=== PATIENT | female | born 1960 | race Caucasian/White ===

== ENCOUNTER → 2016-05-30 | Outpatient (CLI) | payer BC | END | disposition home or self-care (01) | LOC: C.PAPS 14:10 | PROVIDERS: ATTEND Obstetrics & Gynecology | DX: N95.8 Other specified menopausal and perimenopausal disorders (principal); Z01.419 Encounter for gynecological examination (general) (routine) without abnormal findings ==

== ENCOUNTER → 2017-04-13 | Day surgery (SDC) | payer BC ==
[2017-03-27 08:08] VITALS: Ht 170.2 cm; Wt 60.0 kg
[~2017-04-13] VITALS: Ht 170.2 cm; Wt 60.0 kg
[~2017-04-13] MED LIST: ATROPINE SULFATE 0.1 MG/ML 5ML SYR IV PRN; B-COTAB18 PO; CALC600T9 PO; CEFAZOLIN 1000MG IV PUSH 5 ML IV SCH; CHRO1CAP3 PO; DEXAMETHASONE SOD INJ 4 MG/ML VIAL ONE; EpHEDrine SULFATE INJ 50 MG/ML AMP IV PRN; EpHEDrine SULFATE INJ 50 MG/ML AMP ONE; FENTANYL CITRATE INJ 50 MCG/1 ML 2 ML VIAL ONE; HYDR-5688 PO; LACTATED RINGER'S 1000ML 1,000 ML IV SCH; LIDOCAINE HCL 1% 20 ML VIAL ONE; LIDOCAINE HCL 2% 2 ML VIAL (20MG/ML) ONE; LIDOCAINE/EPINEPHRINE 1% INJ 50 ML VIAL ONE; MIDAZOLAM HCL 1 MG/ML 2ML VIAL ONE; MULT-1018 PO; MULT-506 PO; OMEG10007 PO; ONDANSETRON INJ 2 MG/ML 2 ML VIAL IV PRN; ONDANSETRON INJ 2 MG/ML 2 ML VIAL ONE; OXYCODONE/ACETAMINOPHEN 5-325 TAB PO PRN; PROPOFOL IV EMULSION 10 MG/ML 20 ML VIAL IV ONE; SODIUM CHLORIDE 0.9% 1000ML 1,000 ML IV SCH; SODIUM CHLORIDE 0.9% INJ 10 ML VIAL ONE; TURM500T PO
--- NOTE | 2017-04-13 08:20 | History & Physical Bridge Note ---
H&P Re-Evaluation Bridge Note: I have examined the patient, reviewed the History & Physical and in the interval since the performance of the History & Physical I have noted the following changes of clinical significance: No changes noted
[2017-04-13] MEDS: LIDOCAINE HCL 1% 20 ML VIAL ONE (10:00)
[2017-04-13] MEDS: BUPIVACAINE/EPINEPHRINE 0.5% MPF 1:200,000 30 ML VIAL ONE ×2 (10:00→10:05)
--- NOTE | 2017-04-13 10:18 | [facility] Operative Report ---
Operative Report Operative Date Apr 13, 2017. Pre-Operative Diagnosis Bilateral Middle finger Trigger Digits, Bilateral CMC joint arthritis, Lateral epicondylitis, right elbow Post-Operative Diagnosis same as preop Procedure(s) Performed Bilateral Middle Finger Trigger Finger Releases, Bilateral Thumb Carpometa Carpal Joint Steroid Injections; Right Tennis Elbow Debridement Surgeon Dr. Mccarthy Cementing Bulk Material Operator Surgeon(s) TIFFANIE Ross, peter reed fellow Estimated Blood Loss 2 cc Findings Tendinosis right elbow. Passive triggering of the right long finger. Specimens A: Tennis Elbow, right Anesthesia laryngeal mask Complication(s) None Disposition Recovery Room / PACU Indications The patient is a 50-year-old female with bilateral long finger trigger digits bilateral basilar thumb joint arthritis and right tennis elbow. These refractory to nonsurgical methods of management she wishes to have the after mentioned procedures Description of Procedure Informed consent was obtained. The patient was identified as Verena Mccarty. She identified the operative site as both thumbs both long fingers and the right elbow. A preoperative surgical timeout was performed. Appropriate dose of IV antibiotics was given. She was taken to the operating room positioned supine on the OR table and the laryngeal mask anesthetic was administered. The examination under anesthesia revealed clicking but no locking of the left long finger. There was passive locking and clicking to the right long finger. Both upper extremities were prepped and draped in the usual sterile fashion DVT prophylaxis was not indicated after the procedures were completed 50-50 mixture of 1% lidocaine with epinephrine and half percent Marcaine were injected into each of the surgical incisions. Prior to prepping and draping 10 mg Depo- Medrol and 1/4 mL of 1% plain lidocaine were injected into each basilar thumb joint using separate preparations and sterile technique. On the right thumb the initial injection may have been more towards the scaphoid trapezial joint and I administered an additional identical injection was just felt was more confidently in the trapeziometacarpal joint. The left arm was exsanguinated with the Esmarch and the Esmarch was unwrapped distal to proximal and utilized as a tourniquet. A oblique incision was used in the skin crease overlying the long finger. Blunt dissection was performed in the midline. And the A1 trisha was identified and released in line with the tendon. The tendon was normal. There is no notable Cate synovitis and no mass. It was then irrigated and closed with interrupted horizontal mattress stitches. 4-0 nylon suture was utilized. Attention was turned to the right arm where the limb was exsanguinated with the Esmarch tourniquet inflated 225 mmHg. An oblique incision was made using a minor skin crease overlying the long finger. Blunt dissection was performed down through the skin and subcutaneous tissues until the thickened A1 trisha was identified. Trisha on the left hand was not notably thickened on the right it was. The A1 trisha was completely released. There was no residual catching or locking. The tendon looked normal. The wound was irrigated and closed with 4-0 nylon interrupted horizontal mattress stitches. Attention was turned to the right elbow were a 4 cm longitudinal incision was made over the anterior aspect of the lateral epicondyle. The skin was incised and blunt dissection was performed down to subcutaneous tissues. The posterior margin of the extensor carpi radialis longus muscle was identified. An incision was made in the fascia 2-3 mm posterior to this and then elevated up off the underlying ECRB. Extensor carpi radialis brevis tendon. Dull fish fleshy warren type tendon tendinosis tissue was noted. This was excised en bloc in a triangular fashion with the apex proximal and the base of the distal at the radiocapitellar joint. There was no plica noted the radiocapitellar articulation looked normal. The scratch test was utilized to remove any remaining tendinosis anterior and posterior. Care was taken to stay on the anterior portion of the epicondyles to protect the collateral ligament. The remaining tissue looked normal. The wound was irrigated. The tendon was then closed with running 0 Vicryl. The skin was closed with 4-0 Vicryl and 4-0 Monocryl subcuticular stitch. A soft sterile dressing was applied from the fingers to the elbow utilizing an Jayjay wrap. Xeroform 4 x 4's. A soft sterile dressing was applied to the left hand as well. Xeroform 4 x 4's and Coban. The tourniquet on the right arm was let down after approximate 35 minutes of inflation. Tourniquet time on the left was 6 minutes. The resected tissue on the right elbow was sent for specimen. There were no complications. Counts were correct in the case. Blood loss was minimal. At the conclusion operations both patient's informed of my findings. Detailed postoperative instructions were given. She'll be rehabilitated according to the trigger finger and tennis elbow debridement protocol. He was then awakened from anesthesia without difficulty and taken occurred in stable condition I attest to the content of the Intraoperative Record and any orders documented therein. Any exceptions are noted below.
--- NOTE | 2017-04-13 10:22 | Discharge Instructions-SurgCtr ---
Discharge Instructions Date of Service Apr 13, 2017. Visit Reason for Visit: Bilateral Middle Finger Trigger Digits, Thumb Carp Discharge Discharge Diagnosis / Problem: B/L middle finger trigger digits, BL thumb CMC jt OA; R elbow Lat. epicondy Discharge Goals Goal(s): Decrease discomfort, Improve function, Increase independence Activity Recommendations Activity Limitations: per Instructions/Follow-up section Weightbearing Status: Left non-weightbearing (left hand), Right non- weightbearing (right hand and right elbow) Anesthesia . Post Anesthesia Instructions: If you have had General Anesthesia or IV Sedation: * Do not drive today. * Resume driving when surgeon permits. * Do not make important decisions or sign legal documents today. * Call surgeon for: 1. Temperature elevations greater than 101 degrees F. 2. Uncontrollable pain. 3. Excessive bleeding. 4. Persistent nausea and vomiting. 5. Medication intolerance (nausea, vomiting or rash). * For nausea and vomiting use only clear liquids such as: tea, soda, bouillon until nausea subsides, then gradually increase diet as tolerated. * If you have any concerns or questions, call your surgeon's office. If physician is unavailable and it is an emergency, call 911 or go to the nearest emergency room. . Instructions / Follow-Up Instructions / Follow-Up The following are instructions to follow after minor hand surgery. ACTIVITY RECOMMENDATIONS: * Minimize activity until your first visit after surgery. * No excessive walking, jogging, sports or laboring. * Return to activity is individualized. Most patients are able to return to everyday activities within 2 weeks. * Return to sports or intensive labor usually occurs at 1-2 months. * DRIVING: Driving may be resumed when you feel you have adequate pain control and use of the hand. * BATHING: You may shower or sponge-bathe immediately after surgery. The dressing will need to be covered with a plastic bag or plastic wrap until the dressing is changed on the fourth or fifth day after surgery. Once the dressing has been changed on the fourth or fifth day after surgery, you may shower and get the incision wet. * Wash with regular soap and water. * Do not bathe (submerge the incision), soak, swim or use a hot tub until the incision is completely healed over with normal skin and the doctor has given the OK to proceed. * There is no need to apply any ointments, powders or salves to your incision. * Do not apply alcohol or hydrogen peroxide directly to the incision. Diluted peroxide (50:50 mixture with sterile saline) may be used to clean dried blood from around the incision area. WORK/SCHOOL: * You may return to sedentary work or school when you are feeling comfortable. This is usually 3-7 days after surgery. * Expect increased discomfort with increased activity. Continue to elevate and ice the hand as much as possible. DIET: * Resume previous diet. MEDICATIONS: * You will have a prescription for pain medication and an anti-inflammatory medication after surgery. Use the pain pills for severe pain and the anti-inflammatory for less severe pain. * Once the pain pills have run out, try to use the anti-inflammatory. If this is not effective then contact the office for assistance. * The pain medication may cause nausea, constipation and sleepiness. You should see how they affect you before driving or similar activity. * The anti-inflammatory may cause stomach upset and bleeding. If this occurs, let your doctor know immediately . * Some patients may need blood clot prevention. This can be done with either a pill or a simple shot. Your doctor will advise you on when to begin these medications and how to take them. * Do not take aspirin or other anti-inflammatory products (i.e. Advil or Aleve ) if taking blood thinner medication. * Take a stool softener like Colace or a stimulant like Senokot to prevent constipation. SPECIAL CARE INSTRUCTIONS: ICE: * Do not apply ice directly to the skin. * Use a thin dressing or stockinet between the skin and ice bag. The dressing in place after surgery will suffice. * Apply ice for 20-30 minutes and repeat every 2-4 hours. This is especially important for the first 3-7 days after surgery. * Once the pain improves, use ice as needed. ELEVATION: * Keep your hand elevated at or above the level of your heart as much as possible. * Expect some increased discomfort and swelling if you allow your hand to hang down for any length of time. DRESSING: * Your dressing will be changed 4-5 days after surgery by the physical therapist or physician's child care center assistant director. Leave your dressing intact until this time. * You may then change your dressing daily with clean dry gauze or Band-aids and a soft wrap or stockinet. * Always wash your hands prior to touching the incision area. * Once the stitches are removed, you may leave the wound open to air or cover with a thin bandage. * There is no need to apply any ointments, powders or salves to your incision. * Expect some bloody drainage for the first few days after surgery. * Leave the tape strips in place (if present) for 5-7 days. * The initial dressing after surgery may become soaked with blood or fluid which is normal. You may reinforce your dressing with clean, dry gauze as needed. BRACE: * Bracing is generally not needed after routine hand surgery. THERAPY: * Physical therapy may be prescribed after your surgery. * For carpal tunnel and trigger digit surgery you may begin moving your fingers and wrist immediately after surgery as tolerated. * Be careful to not overuse. * Once the sutures are removed, further range of motion exercises can be performed. * Hand incisions may be very sensitive for a few months after surgery so avoid excessive pressure on the incision. If necessary, use a padded weightlifters' glove. * You may massage the incision with skin cream to make it less sensitive and reduce scarring. * Hand strength usually returns with normal use. * If needed, squeezing a soft sponge or Play-dough may help. * Your doctor will recommend physical therapy if necessary. PROBLEMS/QUESTIONS: * If you have any problems such as severe pain, numbness, tingling or high fevers or if you have any questions, please contact the office at [phone]. * It is not uncommon to have some numbness and tingling after the surgery especially if you have had a nerve block done. This should gradually improve over the first 1- 2 days. If this persists longer or worsens then contact the office. FOLLOW UP VISIT: * If not already scheduled, please call the office at to schedule follow-up appointments for approximately 10 days, 6 weeks and 3 months after surgery. * You have a physical therapy appointment on 04/17/2017 at 10:30 AM. * You have a follow-up appointment scheduled with Dr. Mccarthy on 04/26/2017 at 12:00 PM Diet Recommendations Home Diet: no limitations, resume previous diet Procedures Procedures Performed: Bilateral Middle Finger Trigger Finger Releases, Bilateral Thumb Carpometa Carpal Joint Steroid Injections; Right Tennis Elbow Debridement Pending Studies Studies pending at discharge: no Medical Emergencies . Who to Call and When: Medical Emergencies: If at any time you feel your situation is an emergency, please call 911 immediately. . Non-Emergent Contact Non-Emergency issues call your: Surgeon Call Non-Emergent contact if: temperature is above 101, your pain is not controlled, wound has increased drainage, wound has increased redness, wound has increased pain, you have any medication questions . . "Provider Documentation" section prepared by Maira Fernando. . [place] Drug Monitoring Program Search Results: patient reviewed within database, no issues identified
--- NOTE | 2017-04-13 10:27 | [facility] Operative Report ---
Operative Report Operative Date Apr 13, 2017. Pre-Operative Diagnosis Bilateral Middle finger Trigger Digits, Bilateral CMC joint arthritis, Lateral epicondylitis, right elbow Post-Operative Diagnosis same as preop Procedure(s) Performed Bilateral Middle Finger Trigger Finger Releases, Bilateral Thumb Carpometa Carpal Joint Steroid Injections; Right Tennis Elbow Debridement Surgeon Dr. Mccarthy Graphite Grinder Surgeon(s) TIFFANIE Ross, peter reed fellow Estimated Blood Loss 2 cc Findings Trigger digits bilateral middle fingers, right lateral epicondylitis Specimens A: Tennis Elbow, right Drains None Anesthesia laryngeal mask Complication(s) None Disposition Recovery Room / PACU (stable) Indications She is a 56 year old female who presented to our office with complaints of bilateral trigger digits, right lateral elbow pain and bilateral thumb pain. X- rays were taken, showed no bony abnormality and she was diagnosed with bilateral middle finger trigger digits, bilateral CMC joint osteoarthritis, and right elbow lateral epicondylitis. She is failed conservative treatment. She wished to proceed with surgery. Risks and complications discussed. Informed consent was obtained. Description of Procedure She was taken to the operating room and placed under general anesthesia. She was given 1 g of IV Ancef for surgical prophylaxis. Timeout was performed. She was prepped and draped in routine sterile fashion. I was present during the entire case, please see Dr. Mccarthy's operative report for further detail. She was awakened and transferred to the recovery room in stable condition. I attest to the content of the Intraoperative Record and any orders documented therein. Any exceptions are noted below.
[2017-04-13] MEDS: FENTANYL CITRATE INJ 50 MCG/1 ML 2 ML VIAL IV PRN ×4 (10:33→10:54)
--- NOTE | 2017-04-13 11:18 | Anesthesia Progress Nt - [facility] ---
Anesthesia Post Op Note Date & Time Apr 13, 2017 at 11:18 Vital Signs Pain Intensity: 0 Vital Signs Past 12 Hours Date Time Temp Pulse Resp B/P (MAP) Pulse Ox O2 Delivery O2 Flow Rate FiO2 04/13/17 11:07 96 10 04/13/17 11:07 97 10 96 04/13/17 11:06 132/63 04/13/17 11:02 100 13 96 04/13/17 11:02 99 13 04/13/17 11:02 36.9 96 Room Air 04/13/17 11:01 140/63 04/13/17 11:00 103 17 04/13/17 11:00 101 17 97 04/13/17 10:56 120/55 04/13/17 10:55 94 12 04/13/17 10:55 93 12 93 04/13/17 10:54 97 10 96 04/13/17 10:54 97 10 04/13/17 10:51 116/55 04/13/17 10:49 102 13 04/13/17 10:49 102 13 97 04/13/17 10:46 119/48 04/13/17 10:44 97 14 04/13/17 10:44 96 14 99 04/13/17 10:43 100 8 99 04/13/17 10:43 99 8 04/13/17 10:41 118/63 04/13/17 10:38 98 10 99 04/13/17 10:38 97 10 04/13/17 10:36 114/75 04/13/17 10:33 102 14 04/13/17 10:33 101 14 99 04/13/17 10:31 155/67 04/13/17 10:28 103 17 04/13/17 10:28 103 17 99 04/13/17 10:26 135/57 04/13/17 10:23 101 22 99 04/13/17 10:23 102 22 04/13/17 10:21 129/70 04/13/17 10:20 36.5 107 16 156/70 99 Mask 6 04/13/17 10:19 156/72 04/13/17 07:32 36.6 87 16 128/90 (103) 100 Room Air Notes Mental Status: alert / awake / arousable, participated in evaluation Pt Amnestic to Procedure: Yes Nausea / Vomiting: adequately controlled Pain: adequately controlled Airway Patency, RR, SpO2: stable & adequate BP & HR: stable & adequate Hydration State: stable & adequate Anesthetic Complications: no major complications apparent
[2017-04-13 12:15] VITALS: BP 114/70; PULSE 78; TEMP 36.9; O2SAT 98
== END | disposition home or self-care (01) ==
LOC: X.SURG 07:00
PROVIDERS: ATTEND Physical Medicine & Rehabilitation Sports Medicine
DX: M65.331 Trigger finger, right middle finger (principal); M65.332 Trigger finger, left middle finger; M19.041 Primary osteoarthritis, right hand; M19.042 Primary osteoarthritis, left hand; M77.11 Lateral epicondylitis, right elbow; M06.9 Rheumatoid arthritis, unspecified; Z85.828 Personal history of other malignant neoplasm of skin; Z90.49 Acquired absence of other specified parts of digestive tract